=== PATIENT | male | born 1985 | race Two or more races ===

== ENCOUNTER 2018-01-17 01:14 | Emergency (ER) | payer OTHER ==
[~2018-01-17] VITALS: Ht 180.3 cm; Wt 72.6 kg
[2018-01-17 01:22] VITALS: BP 107/66
[2018-01-17] MEDS ORDERED: TDAP [DIPH/PERTUSSIS/TET] 0.5 ML VIAL IM ONE (01:30)
[2018-01-17] MEDS ORDERED: LIDOCAINE /MPF 1% VIAL 5 ML VIAL ONE (01:32)
--- NOTE | 2018-01-17 01:35 | NUR ---
DR. RENTERIA AT BEDSIDE FOR LAC REPAIR.
--- NOTE | 2018-01-17 01:58 | NUR ---
Patient discharged to under [employer] in stable condition. Written and verbal after care instructions given. Patient verbalizes understanding of instruction. ambulatory with a steady gait.
== END 2018-01-17 02:04 ==
LOC: ER 01:18
DX: S01.511A Laceration without foreign body of lip, initial encounter (principal); S01.01XA Laceration without foreign body of scalp, initial encounter; Y04.0XXA Assault by unarmed brawl or fight, initial encounter; Y93.89 Activity, other specified; Y92.89 Other specified places as the place of occurrence of the external cause; Y99.8 Other external cause status
CPT/HCPCS: A4606; A6402; A6403; J3490; Z7610